=== PATIENT | male | born 1955 | race Caucasian/White ===

== ENCOUNTER 2016-05-14 08:10 | Outpatient (CLI) | payer BC, OTHER | END 2016-05-14 23:59 | DX: I10 Essential (primary) hypertension (principal); E78.5 Hyperlipidemia, unspecified; R73.01 Impaired fasting glucose ==

== ENCOUNTER 2016-06-30 12:34 | Day surgery (SDC) | payer BC, OTHER ==
[2016-06-30] MEDS ORDERED: LACTATED RINGERS 1,000 ML IV ONE (12:49)
[2016-06-30] MEDS ORDERED: fentaNYL 100 MCG/2 ML VIAL IVP ONE (14:57)
[2016-06-30] MEDS ORDERED: MIDAZOLAM 2 MG/2 ML VIAL IVP ONE (14:57)
== END 2016-06-30 12:35 | disposition home or self-care (01) ==
PROC: 0DJD8ZZ Inspection of Lower Intestinal Tract, Via Natural or Artificial Opening Endoscopic (ICD-10-PCS; principal; 2016-06-30 14:15)
DX: Z12.11 Encounter for screening for malignant neoplasm of colon (principal); K64.8 Other hemorrhoids; I10 Essential (primary) hypertension; E78.00 Pure hypercholesterolemia, unspecified; G47.30 Sleep apnea, unspecified; Z79.82 Long term (current) use of aspirin; Z80.1 Family history of malignant neoplasm of trachea, bronchus and lung; Z87.891 Personal history of nicotine dependence
CPT/HCPCS: 45378; J7120

== ENCOUNTER 2016-10-08 11:40 | Outpatient (CLI) | payer BC, OTHER | END 2016-10-08 11:41 | LOC: LAB.WCP 11:40 | PROVIDERS: ATTEND Physician Assistant Medical | DX: H60.90 Unspecified otitis externa, unspecified ear (principal) | CPT/HCPCS: 87070 ==

== ENCOUNTER 2017-05-25 08:20 | Outpatient (CLI) | payer BC, OTHER ==
[2017-05-25 12:27] LABS: ALBUMIN 4.4 g/dL (3.2-5.5); ALBUMIN/GLOBULIN RATIO 1.5 (1.0-2.2); ALKALINE PHOSPHATASE 61 IU/L (42-121); ALT ALANINE AMINOTRANSFERASE 28 IU/L (10-60); AST ASPARTATE AMINOTRANSFERASE 23 IU/L (10-42); BILIRUBIN,TOTAL 0.8 mg/dL (0.2-1.0); BUN - BLOOD UREA NITROGEN 19 mg/dL (6-20); CARBON DIOXIDE - CO2 24 mmol/L (21-32); CHLORIDE 104 mmol/L (101-111); CHOL/HDL RATIO 3.3 (<5.0); CHOLESTEROL 163 mg/dL; CREATININE 0.7 mg/dL (0.6-1.2); GFR - MDRD 114 (>89); GLUCOSE 121 mg/dL (70-100); HDL CHOLESTEROL 49 mg/dL; LDL CHOLESTEROL,CALCULATED 89 mg/dL; LDL/HDL RATIO 1.8 (<3.6); SODIUM 136 mmol/L (135-145); TOTAL PROTEIN 7.3 g/dL (6.7-8.2); VLDL CHOLESTEROL 25 mg/dL
[2017-05-25 12:39] LABS: HB2 TOTAL 15.1 g/dL; HEMOGLOBIN A1C 0.58 g/dL; HEMOGLOBIN A1C % 5.7 % (4.6-6.2)
[2017-05-25 12:52] LABS: BASOPHILS % (AUTO) 0.5 %; EOSINOPHILS # (AUTO) 0.1 10^3/uL (0.0-0.7); EOSINOPHILS % (AUTO) 1.3 %; HGB - HEMOGLOBIN 14.5 g/dL (14.0-18.0); LYMPHOCYTES # (AUTO) 1.9 10^3/uL (1.5-3.5); LYMPHOCYTES % (AUTO) 24.4 %; MEAN CORPUSCULAR HEMOGLOBIN 30.9 pg (27.0-31.0); MEAN CORPUSCULAR HGB CONC 34.3 g/dL (32.0-36.0); MEAN CORPUSCULAR VOLUME 90.1 fL (80.0-94.0); MEAN PLATELET VOLUME 8.7 fL (7.4-11.4); MONOCYTES # (AUTO) 0.5 10^3/uL (0.0-1.0); NEUTROPHILS # (AUTO) 5.1 10^3/uL (1.5-6.6); NEUTROPHILS % (AUTO) 66.8 %; PLT - PLATELET COUNT 229 10^3/uL (130-450); RED BLOOD COUNT 4.68 10^6/uL (4.70-6.10); RED CELL DISTRIBUTION WIDTH 13.2 % (12.0-15.0); WHITE BLOOD COUNT 7.6 x10^3/uL (4.8-10.8)
[2017-05-25 13:22] LABS: RBC MORPHOLOGY (MULTIPLE) 2+ ANISOCYTOSIS (NORMAL)
== END 2017-05-25 08:21 | disposition home or self-care (01) ==
LOC: LAB.WCP 08:20
PROVIDERS: ATTEND Physician Assistant Medical
DX: Z00.00 Encounter for general adult medical examination without abnormal findings (principal); R73.01 Impaired fasting glucose; N40.1 Benign prostatic hyperplasia with lower urinary tract symptoms
CPT/HCPCS: 36415; 80053; 80061; 83036; 83721; 84153; 84443; 85025

== ENCOUNTER 2017-10-06 07:40 | Outpatient (CLI) | payer BC, OTHER ==
[2017-10-06 13:29] LABS: CALCIUM 9.4 mg/dL (8.5-10.3)
[2017-10-06 16:36] LABS: HB2 TOTAL 15.9 g/dL; HEMOGLOBIN A1C 0.64 g/dL; HEMOGLOBIN A1C % 5.8 % (4.6-6.2)
== END 2017-10-06 07:41 | disposition home or self-care (01) ==
LOC: LAB.WCP 07:40
PROVIDERS: ATTEND Physician Assistant Medical
DX: R73.9 Hyperglycemia, unspecified (principal)
CPT/HCPCS: 36415; 80048; 83036

== ENCOUNTER 2018-01-26 09:37 | Outpatient (CLI) | payer BC, OTHER ==
[2018-01-26 12:56] LABS: CREATININE 0.8 mg/dL (0.6-1.2)
[2018-01-26 13:00] LABS: HB2 TOTAL 16.1 g/dL; HEMOGLOBIN A1C 0.62 g/dL; HEMOGLOBIN A1C % 5.7 % (4.6-6.2)
== END 2018-01-26 09:38 | disposition home or self-care (01) ==
LOC: LAB.WCP 09:37
PROVIDERS: ATTEND Physician Assistant Medical
DX: R73.9 Hyperglycemia, unspecified (principal)
CPT/HCPCS: 36415; 80048; 83036

== ENCOUNTER 2018-03-06 13:09 | Emergency (ER) | payer BC, OTHER ==
[2018-03-06 13:14] VITALS: BP 178/97
--- NOTE | 2018-03-06 13:29 | ED Physician Documentation ---
PD HPI UPPER EXT INJURY - Stated complaint Stated Complaint: LT THUMB LAC - Chief complaint Chief Complaint: Laceration - History obtained from History obtained from: Patient - History of Present Illness Location: Left (This is a left-handed gentleman who is up-to-date on tetanus who cut the dorsum of his left thumb at home on a broken mirror just prior to arrival.) Review of Systems Constitutional: denies: Fever, Chills Cardiac: denies: Chest pain / pressure, Palpitations Respiratory: denies: Dyspnea, Cough PD PAST MEDICAL HISTORY - Past Medical History Cardiovascular: Hypertension, High cholesterol Respiratory: Sleep apnea, CPAP use Endocrine/Autoimmune: None GI: Hiatal hernia, Other : None HEENT: None Psych: None Musculoskeletal: None Derm: Herpes zoster - Past Surgical History Past Surgical History: Yes General: Hiatal hernia repair, Colonoscopy HEENT: Tonsil/Adenoidectomy - Present Medications Home Medications: Ambulatory Orders Medication Instructions Recorded Confirmed Doxazosin [Cardura] 4 mg PO DAILY 11/05/12 06/30/16 Lisinopril [Zestril] 10 mg PO DAILY 11/05/12 06/30/16 Simvastatin [Zocor] 40 mg PO QPM 11/05/12 06/30/16 Aspirin [Aspir 81] 81 mg PO DAILY 05/10/14 06/30/16 - Allergies Allergies/Adverse Reactions: Allergies Allergy/AdvReac Type Severity Reaction Status Date / Time No Known Drug Allergies Allergy Verified 03/06/18 13:14 - Social History Does the pt smoke?: No Smoking Status: Never smoker Does the pt drink ETOH?: Yes Does the pt have substance abuse?: No - Immunizations Immunizations: TDAP current <10years PD ED PE NORMAL - Vitals Vital signs reviewed: Yes - General General: Alert and oriented X 3, No acute distress - Extremities Extremities: Other (On the dorsum of the left thumb at the level of the interphalangeal joint there is an oblique curved but very shallow laceration without trouble with extensor tendon function or neurovascular compromise at the tip.) - Neuro Neuro: Alert and oriented X 3, Normal speech Results - Vitals Vitals: Vital Signs - 24 hr 03/06/18 13:11 Temperature 36.4 C L Heart Rate 79 Respiratory 20 Rate Blood Pressure 178/97 H O2 Saturation 96 Oxygen O2 Source Room air Procedures - Laceration (location) L thumb Length in cm: 2 Wound type: Curved, Superficial Wound Preparation: Irrigated copiously NS Skin layer closure: Steri strips Complexity: Simple - Splint (location) L thumb Splint applied by: Physician Type of splint: Metal foam finger splint Other: Patient tolerated well, No complications, Neurovascular intact PD MEDICAL DECISION MAKING - ED course ED course: It was really too shallow to suture, it was Steri-Stripped and he was placed in a splint is he is doing some renovating around his house. Departure - Departure Disposition: 01 Home, Self Care Clinical Impression: Laceration Condition: Good Record reviewed to determine appropriate education?: Yes Instructions: ED Laceration Small Superf No Sutr Comments: Your blood pressure was elevated today on check into the emergency department. This does not mean that you have hypertension, it is a common phenomenon to come to the emergency department and have elevated blood pressure. I recommend that you see your primary care physician within the week to have it rechecked when you are feeling better.
== END 2018-03-06 14:04 | disposition home or self-care (01) ==
LOC: ED 13:09
DX: S61.012A Laceration without foreign body of left thumb without damage to nail, initial encounter (principal); W25.XXXA Contact with sharp glass, initial encounter; Y92.009 Unspecified place in unspecified non-institutional (private) residence as the place of occurrence of the external cause; I10 Essential (primary) hypertension; E78.00 Pure hypercholesterolemia, unspecified
CPT/HCPCS: 29130; 99282; 99283

== ENCOUNTER 2018-03-17 05:19 | Emergency (ER) | payer BC, OTHER ==
--- NOTE | 2018-03-17 05:36 | ED Physician Documentation ---
PD HPI ABD PAIN - Stated complaint Stated Complaint: RT FLANK PAIN - Chief complaint Chief Complaint: Abd Pain - History obtained from History obtained from: Patient - History of Present Illness Timing - onset: Enter time (03:00), Today Timing - details: Waxing and waning Pain level max: 8 Pain level now: 6 Location: Other (right flank) Radiation: Lower back Improved by: Other (nothing) Worsened by: Other (no exacerbating factors) Associated symptoms: Nausea. No: Fever, Vomiting Similar symptoms before: Has not had sx before Recently seen: Not recently seen - Additional information Additional information: c/o right flank pain since 3 AM, waxing and waning. took ibuprofen without relief. Review of Systems Constitutional: reports: Sweats. denies: Fever, Chills Cardiac: reports: Reviewed and negative Respiratory: reports: Reviewed and negative GI: reports: Abdominal Pain (right flank), Nausea. denies: Vomiting : denies: Dysuria, Frequency Musculoskeletal: reports: Back pain PD PAST MEDICAL HISTORY - Past Medical History Past Medical History: Yes Cardiovascular: Hypertension, High cholesterol Respiratory: Sleep apnea, CPAP use Endocrine/Autoimmune: None GI: Hiatal hernia, Other : None HEENT: None Psych: None Musculoskeletal: None Derm: Herpes zoster - Past Surgical History Past Surgical History: Yes General: Hiatal hernia repair, Colonoscopy HEENT: Tonsil/Adenoidectomy Derm: Skin cancer surgery - Present Medications Home Medications: Ambulatory Orders Medication Instructions Recorded Confirmed Doxazosin [Cardura] 4 mg PO DAILY 11/05/12 03/17/18 Lisinopril [Zestril] 10 mg PO DAILY 11/05/12 03/17/18 Simvastatin [Zocor] 40 mg PO QPM 11/05/12 03/17/18 Aspirin [Aspir 81] 81 mg PO DAILY 05/10/14 03/17/18 Naproxen 500 mg PO BID PRN #60 tablet 03/17/18 Ondansetron HCl [Zofran] 4 mg PO Q6HR PRN #30 tablet 03/17/18 Oxycodone HCl/Acetaminophen 1 each PO Q6H PRN #20 tablet 03/17/18 [Percocet 5-325 mg Tablet] - Allergies Allergies/Adverse Reactions: Allergies Allergy/AdvReac Type Severity Reaction Status Date / Time No Known Drug Allergies Allergy Verified 03/17/18 05:27 - Social History Does the pt smoke?: No Smoking Status: Never smoker Does the pt drink ETOH?: Yes Does the pt have substance abuse?: No - Immunizations Immunizations are current?: Yes Immunizations: TDAP current <10years - POLST Patient has POLST: No PD ED PE NORMAL - Vitals Vital signs reviewed: Yes - General General: Alert and oriented X 3, Well developed/nourished, Other (appears to be in moderate/severe painful distress) - Cardiac Cardiac: RRR, No murmur - Respiratory Respiratory: No respiratory distress, Clear bilaterally - Abdomen Abdomen: Soft, Non tender - Back Back: No CVA TTP - Derm Derm: Normal color, Warm and dry, No rash Results - Vitals Vitals: Vital Signs - 24 hr 03/17/18 03/17/18 03/17/18 05:20 05:57 06:35 Temperature 36 C L Heart Rate 92 62 48 L Respiratory 18 16 13 Rate Blood Pressure 166/84 H 141/82 H 141/83 H O2 Saturation 98 95 95 03/17/18 03/17/18 03/17/18 06:42 07:05 08:17 Temperature 36.0 C L 36.0 C L Heart Rate 57 L 60 43 L Respiratory 14 15 12 Rate Blood Pressure 140/81 H 144/88 H 170/157 H O2 Saturation 95 97 97 03/17/18 03/17/18 03/17/18 08:35 08:57 10:04 Temperature Heart Rate 74 59 L 64 Respiratory 18 16 12 Rate Blood Pressure 143/69 H 143/69 H 131/80 H O2 Saturation 97 100 100 Oxygen O2 Source Room air - Labs Labs: Laboratory Tests 03/17/18 03/17/18 03/17/18 05:34 05:34 09:43 WBC 7.1 RBC 4.84 Hgb 14.9 Hct 43.7 MCV 90.5 MCH 30.9 MCHC 34.1 RDW 13.7 Plt Count 242 MPV 8.2 Neut # (Auto) 4.7 Lymph # (Auto) 1.7 [place] # (Auto) 0.5 Eos # (Auto) 0.1 Baso # (Auto) 0.0 Absolute Nucleated RBC 0.00 Nucleated RBC % 0.0 Sodium 137 Potassium 4.1 Chloride 104 Carbon Dioxide 24 Anion Gap 9.0 BUN 20 Creatinine 0.9 Estimated GFR (MDRD) 85 L Glucose 157 H Calcium 9.0 Total Bilirubin 1.0 AST 24 ALT 31 Alkaline Phosphatase 70 Total Protein 7.6 Albumin 4.3 Globulin 3.3 Albumin/Globulin Ratio 1.3 Lipase 52 H Urine Color YELLOW Urine Clarity TURBID Urine pH 5.0 Ur Specific [place] >=1.030 H Urine Protein NEGATIVE Urine Glucose (UA) NEGATIVE Urine Ketones TRACE Urine Occult Blood MODERATE H Urine Nitrite NEGATIVE Urine Bilirubin NEGATIVE Urine Urobilinogen 0.2 (NORMAL) Ur Leukocyte Esterase NEGATIVE Urine RBC 6-10 H Urine WBC 0-3 Ur Squamous Epith Cells FEW Squamous Amorphous Sediment Moderate Urine Bacteria Few Urine Mucus Few Strands Ur Microscopic Review INDICATED Urine Culture Comments NOT INDICATED - Rads (name of study) CT A/P Radiology: Prelim report reviewed, See rad report PD MEDICAL DECISION MAKING - ED course Complexity details: reviewed results, re-evaluated patient, considered differential, d/w patient ED course: pain was initially well controlled with dilaudid and toradol IV (zofran for nausea), but as discharge plans were being discussed, pain and nausea recurred and were again severe, requiring repeat doses of dilaudid, zofran, followed by phenergan. D/W Dr. Rodriguez (urology at [facility]), recommends low dose morphone (2-3 mg) if pain continues, further ED observation, and f/u with his office if improved to the point of discharge but recontact him if pain continues to be poorly controlled. Patient care turned over to Dr. Erickson at end of my shift pending disposition. Departure - Departure Disposition: 01 Home, Self Care Clinical Impression: Urolithiasis, Renal colic Condition: Good Instructions: ED Stone Renal W Colic Follow-Up: Deshawn Rodriguez MD [Physician No Access] - (Call to arrange for next available appointment) Prescriptions: Ondansetron HCl [Zofran] 4 mg PO Q6HR PRN #30 tablet PRN Reason: Nausea / Vomiting Naproxen 500 mg PO BID PRN #60 tablet PRN Reason: Pain Oxycodone HCl/Acetaminophen [Percocet 5-325 mg Tablet] 1 each PO Q6H PRN #20 tablet PRN Reason: pain Comments: Please return to the emergency department for any worsening or any concerns. Discharge Date/Time: 03/17/18 10:28
[2018-03-17] MEDS ORDERED: HYDROmorphone 1 MG/ML CARPUJECT IVP STA ×3 (05:43→07:58)
[2018-03-17] MEDS ORDERED: KETOROLAC 30 MG/ML VIAL IVP STA (05:43)
[2018-03-17 05:52] LABS: ALBUMIN 4.3 g/dL (3.2-5.5); ALBUMIN/GLOBULIN RATIO 1.3 (1.0-2.2); CREATININE 0.9 mg/dL (0.6-1.2); TOTAL PROTEIN 7.6 g/dL (6.7-8.2)
[2018-03-17] MEDS ORDERED: ONDANSETRON 4 MG/2 ML VIAL IVP STA ×2 (05:52→07:05)
[2018-03-17 05:55] LABS: BASOPHILS % (AUTO) 0.6 %; EOSINOPHILS # (AUTO) 0.1 10^3/uL (0.0-0.7); EOSINOPHILS % (AUTO) 0.9 %; HGB - HEMOGLOBIN 14.9 g/dL (14.0-18.0); LYMPHOCYTES # (AUTO) 1.7 10^3/uL (1.5-3.5); LYMPHOCYTES % (AUTO) 24.4 %; MEAN CORPUSCULAR HEMOGLOBIN 30.9 pg (27.0-31.0); MEAN CORPUSCULAR HGB CONC 34.1 g/dL (32.0-36.0); MEAN CORPUSCULAR VOLUME 90.5 fL (80.0-94.0); MEAN PLATELET VOLUME 8.2 fL (7.4-11.4); MONOCYTES # (AUTO) 0.5 10^3/uL (0.0-1.0); MONOCYTES % (AUTO) 7.6 %; NEUTROPHILS # (AUTO) 4.7 10^3/uL (1.5-6.6); NEUTROPHILS % (AUTO) 66.5 %; PLT - PLATELET COUNT 242 10^3/uL (130-450); RED BLOOD COUNT 4.84 10^6/uL (4.70-6.10); RED CELL DISTRIBUTION WIDTH 13.7 % (12.0-15.0); WHITE BLOOD COUNT 7.1 x10^3/uL (4.8-10.8)
[2018-03-17] MEDS ORDERED: ONDANSETRON 4 MG/2 ML VIAL ONE (05:57)
--- NOTE | 2018-03-17 06:43 | CT Report ---
Reason: right flank pain Procedure Date: 03/17/2018 Accession Number: [id number] / [id number] Procedure: CT - Abdomen/Pelvis W/O CPT Code: FULL RESULT: EXAM: CT ABDOMEN AND PELVIS (CT KUB) EXAM DATE: 03/17/2018 06:11 AM. CLINICAL HISTORY: Right flank pain. COMPARISONS: None. TECHNIQUE: Routine axial helical CT imaging was performed through the abdomen and pelvis without IV contrast. Reconstructions: Coronal and sagittal. In accordance with CT protocol optimization, one or more of the following dose reduction techniques were utilized for this exam: automated exposure control, adjustment of mA and/or KV based on patient size, or use of iterative reconstructive technique. FINDINGS: Lung Bases: No focal consolidation seen. Fundoplication is noted. Right Kidney/Ureter: No stones are seen in the kidney. Mildly obstructing 3 mm stone in the distal ureter, about 2 cm above the ureterovesical junction. Left Kidney/Ureter: Nonobstructing 2 mm stone in the kidney. No ureteral stone or obstructive uropathy identified. Other Solid Organs: Fatty liver. Spleen, pancreas, and adrenals show no focal abnormalities on this noncontrast examination. Gallbladder/Bile Ducts: Unremarkable. Peritoneal Cavity: Ventral hernia repair. No bowel obstruction seen. Moderate stool in the right hemicolon. No diverticulitis seen. No free air or free fluid. No lymphadenopathy. Pelvic Organs: No bladder stones or wall thickening. Noncontrast images of the visualized pelvic organs are unremarkable. Vasculature: Mild atherosclerosis. No aortic aneurysm. Other: None. IMPRESSION: 1. Mildly obstructing 3 mm stone in the distal right ureter about 2 cm above the ureterovesical junction. 2. Nonobstructing 2 mm stone in the left kidney. 3. Fatty liver. RADIA
[2018-03-17] MEDS ORDERED: PROMETHAZINE INJ 12.5 MG in SODIUM CHLORIDE 0.9% 50 ML IV STA (07:52)
[2018-03-17] MEDS ORDERED: TAMSULOSIN 0.4 MG CAPSULE PO STA (08:45)
[2018-03-17] MEDS ORDERED: oxyCODONE 5 MG TABLET PO STA (08:45)
[2018-03-17 09:51] LABS: BILIRUBIN,URINE NEGATIVE (NEGATIVE); GLUCOSE, URINE (UA) NEGATIVE (NEGATIVE); KETONES,URINE (UA) TRACE mg/dL (NEGATIVE); LEUKOCYTE ESTERASE, URINE NEGATIVE (NEGATIVE); NITRITE,URINE NEGATIVE (NEGATIVE); OCCULT BLOOD,URINE MODERATE (NEGATIVE); PROTEIN,URINE NEGATIVE (NEGATIVE); UROBILINOGEN,URINE 0.2 (NORMAL) E.U./dL (NORMAL)
[2018-03-17 09:52] LABS: CLARITY,URINE TURBID (CLEAR)
[2018-03-17 10:00] LABS: AMORPHOUS SEDIMENT,UR Moderate /LPF; BACTERIA,URINE Few /HPF (None Seen); MUCUS,URINE Few Strands; SQUAMOUS EPITHELIAL CELL,UR FEW Squamous (<= Few)
[2018-03-17 10:05] VITALS: BP 131/80
--- NOTE | 2018-03-17 10:11 | ED Physician Documentation ---
ED Addendum - Addendum Addendum: 03/17/18 10:14 The patient's case was turned over to me by the off going emergency physician Dr. Lowery. Please refer to his history and physical for a comprehensive review of the patient's presentation. In short this is a 62-year-old male who presented to the emergency department with renal colic and on workup had evidence of a mildly obstructing 3 mm stone in the right distal ureter. The patient required more pain management in the emergency department. There is no evidence of a coinciding infected stone or sepsis. On reevaluation the patient is resting comfortably and his pain appears to be under control and appropriate for discharge home. Dr. Lowery is already consulted urology and they have agreed to follow the patient up. The findings and plan were discussed with the patient and his who understand and agreed to the plan. I advised that they should return back to the emergency department if there are pain is under control or they have worsening symptoms or any concerns.
== END 2018-03-17 10:28 | disposition home or self-care (01) ==
LOC: ED 05:19
DX: N20.9 Urinary calculus, unspecified (principal); N20.1 Calculus of ureter; I10 Essential (primary) hypertension; E78.00 Pure hypercholesterolemia, unspecified; Z79.82 Long term (current) use of aspirin
CPT/HCPCS: 36415; 74176; 80053; 81001; 83690; 85025; 96365; 96375; 96376; 99284; 99285; A9270; J1170; J7040; 81003; 87086

== ENCOUNTER 2018-06-28 08:00 | Outpatient (CLI) | payer BC, OTHER ==
[2018-06-28 12:43] LABS: ALBUMIN 4.1 g/dL (3.2-5.5); ALBUMIN/GLOBULIN RATIO 1.4 (1.0-2.2); ALKALINE PHOSPHATASE 66 IU/L (42-121); ALT ALANINE AMINOTRANSFERASE 21 IU/L (10-60); AST ASPARTATE AMINOTRANSFERASE 22 IU/L (10-42); BILIRUBIN,TOTAL 0.9 mg/dL (0.2-1.0); BUN - BLOOD UREA NITROGEN 25 mg/dL (6-20); CALCIUM 8.9 mg/dL (8.5-10.3); CARBON DIOXIDE - CO2 24 mmol/L (21-32); CHLORIDE 103 mmol/L (101-111); CHOL/HDL RATIO 3.3 (<5.0); CHOLESTEROL 153 mg/dL; CREATININE 0.9 mg/dL (0.6-1.2); GFR - MDRD 85 (>89); GLUCOSE 119 mg/dL (70-100); HDL CHOLESTEROL 47 mg/dL; LDL CHOLESTEROL,CALCULATED 86 mg/dL; LDL/HDL RATIO 1.8 (<3.6); SODIUM 138 mmol/L (135-145); VLDL CHOLESTEROL 20 mg/dL
[2018-06-28 12:48] LABS: BASOPHILS # (AUTO) 0.1 10^3/uL (0.0-0.1); BASOPHILS % (AUTO) 0.8 %; EOSINOPHILS # (AUTO) 0.1 10^3/uL (0.0-0.7); EOSINOPHILS % (AUTO) 1.6 %; HGB - HEMOGLOBIN 13.9 g/dL (14.0-18.0); LYMPHOCYTES # (AUTO) 1.7 10^3/uL (1.5-3.5); LYMPHOCYTES % (AUTO) 24.4 %; MEAN CORPUSCULAR HEMOGLOBIN 30.4 pg (27.0-31.0); MEAN CORPUSCULAR HGB CONC 33.4 g/dL (32.0-36.0); MEAN CORPUSCULAR VOLUME 91.1 fL (80.0-94.0); MEAN PLATELET VOLUME 8.8 fL (7.4-11.4); MONOCYTES # (AUTO) 0.5 10^3/uL (0.0-1.0); MONOCYTES % (AUTO) 7.8 %; NEUTROPHILS # (AUTO) 4.6 10^3/uL (1.5-6.6); NEUTROPHILS % (AUTO) 65.4 %; PLT - PLATELET COUNT 244 10^3/uL (130-450); RED BLOOD COUNT 4.58 10^6/uL (4.70-6.10); RED CELL DISTRIBUTION WIDTH 13.7 % (12.0-15.0)
== END 2018-06-28 23:59 | disposition home or self-care (01) ==
LOC: LAB.WCP 08:00
PROVIDERS: ATTEND Physician Assistant Medical
DX: Z00.00 Encounter for general adult medical examination without abnormal findings (principal); E78.5 Hyperlipidemia, unspecified; N40.1 Benign prostatic hyperplasia with lower urinary tract symptoms
CPT/HCPCS: 36415; 80053; 80061; 83721; 84153; 84443; 85025

== ENCOUNTER 2018-11-09 09:19 | Outpatient (CLI) | payer BC, OTHER ==
[2018-11-09 12:51] LABS: CALCIUM 9.4 mg/dL (8.5-10.3); CREATININE 1.1 mg/dL (0.6-1.2)
[2018-11-09 13:00] LABS: HB2 TOTAL 15.2 g/dL; HEMOGLOBIN A1C 0.62 g/dL; HEMOGLOBIN A1C % 5.9 % (4.6-6.2)
== END 2018-11-09 23:59 | disposition home or self-care (01) ==
LOC: LAB.WCP 09:19
PROVIDERS: ATTEND Physician Assistant Medical
DX: R73.9 Hyperglycemia, unspecified (principal)
CPT/HCPCS: 36415; 80048; 83036

== ENCOUNTER 2019-08-19 08:00 | Outpatient (CLI) | payer MEDICARE, OTHER ==
[2019-08-19 11:31] LABS: BASOPHILS # (AUTO) 0.1 10^3/uL (0.0-0.1); BASOPHILS % (AUTO) 0.7 %; EOSINOPHILS # (AUTO) 0.1 10^3/uL (0.0-0.7); EOSINOPHILS % (AUTO) 1.6 %; HGB - HEMOGLOBIN 14.5 g/dL (14.0-18.0); LYMPHOCYTES # (AUTO) 1.7 10^3/uL (1.5-3.5); LYMPHOCYTES % (AUTO) 24.2 %; MEAN CORPUSCULAR HEMOGLOBIN 30.9 pg (27.0-31.0); MEAN CORPUSCULAR HGB CONC 33.1 g/dL (32.0-36.0); MEAN CORPUSCULAR VOLUME 93.4 fL (80.0-94.0); MEAN PLATELET VOLUME 10.6 fL (7.4-11.4); MONOCYTES # (AUTO) 0.7 10^3/uL (0.0-1.0); MONOCYTES % (AUTO) 9.3 %; NEUTROPHILS # (AUTO) 4.4 10^3/uL (1.5-6.6); NEUTROPHILS % (AUTO) 63.2 %; PLT - PLATELET COUNT 236 10^3/uL (130-450); RED BLOOD COUNT 4.69 10^6/uL (4.70-6.10); RED CELL DISTRIBUTION WIDTH 12.6 % (12.0-15.0)
[2019-08-19 11:47] LABS: ALBUMIN 4.2 g/dL (3.2-5.5); ALBUMIN/GLOBULIN RATIO 1.4 (1.0-2.2); ALKALINE PHOSPHATASE 64 IU/L (42-121); ALT ALANINE AMINOTRANSFERASE 26 IU/L (10-60); AST ASPARTATE AMINOTRANSFERASE 22 IU/L (10-42); BUN - BLOOD UREA NITROGEN 21 mg/dL (6-20); CALCIUM 9.1 mg/dL (8.5-10.3); CARBON DIOXIDE - CO2 25 mmol/L (21-32); CHLORIDE 105 mmol/L (101-111); CHOL/HDL RATIO 3.2 (<5.0); CHOLESTEROL 178 mg/dL; CREATININE 0.9 mg/dL (0.6-1.2); GLUCOSE 117 mg/dL (70-100); HDL CHOLESTEROL 55 mg/dL; LDL CHOLESTEROL,CALCULATED 103 mg/dL; LDL/HDL RATIO 1.9 (<3.6); SODIUM 137 mmol/L (135-145); TOTAL PROTEIN 7.3 g/dL (6.7-8.2); VLDL CHOLESTEROL 20 mg/dL
[2019-08-19 11:51] LABS: HB2 TOTAL 14.9 g/dL; HEMOGLOBIN A1C 0.64 g/dL; HEMOGLOBIN A1C % 6.1 % (4.6-6.2)
== END 2019-08-19 23:59 | disposition home or self-care (01) ==
LOC: LAB.WCP 08:00
PROVIDERS: ATTEND Physician Assistant Medical
DX: E78.5 Hyperlipidemia, unspecified (principal); R73.9 Hyperglycemia, unspecified; N40.1 Benign prostatic hyperplasia with lower urinary tract symptoms; N13.8 Other obstructive and reflux uropathy; I10 Essential (primary) hypertension
CPT/HCPCS: 36415; 80053; 80061; 83036; 85025; G0103; 83721; 84153

== ENCOUNTER 2019-09-12 12:46 | Outpatient (CLI) | payer MEDICARE, OTHER ==
--- NOTE | 2019-09-12 14:22 | XRAY Report ---
PROCEDURE: Foot 3 View BILAT INDICATIONS: PLANTAR FASCIITIS TECHNIQUE: 3 views of each foot were acquired. COMPARISON: None. FINDINGS: Bones: No fractures or dislocations. There are small plantar calcaneal enthesophytes bilaterally. A bipartite right medial sesamoid is noted. No suspicious bony lesions. Soft tissues: No tibiotalar joint effusion. Achilles tendon appears normal. IMPRESSION: 1. Small bilateral plantar calcaneal enthesophytes. 2. No acute bony abnormality. Reviewed by: Roberto Carlos Goodwin MD on 09/12/2019 2:21 PM PDT Approved by: Roberto Carlos Goodwin MD on 09/12/2019 2:21 PM PDT Station ID: [id number]
== END 2019-09-12 12:47 | disposition home or self-care (01) ==
LOC: DI.N 12:46
PROVIDERS: ATTEND Physician Assistant Medical
DX: M77.32 Calcaneal spur, left foot (principal); M77.31 Calcaneal spur, right foot

== ENCOUNTER 2020-02-28 08:00 | Outpatient (CLI) | payer MEDICARE, OTHER ==
[2020-02-28 13:08] LABS: BASOPHILS # (AUTO) 0.1 10^3/uL (0.0-0.1); BASOPHILS % (AUTO) 0.7 %; EOSINOPHILS # (AUTO) 0.2 10^3/uL (0.0-0.7); ESTIMATED AVERAGE GLUCOSE 108 mg/dL (70-100); HCT - HEMATOCRIT 46.4 % (42.0-52.0); HEMOGLOBIN A1c% 5.4 % (4.27-6.07); HGB - HEMOGLOBIN 14.9 g/dL (14.0-18.0); LYMPHOCYTES # (AUTO) 1.8 10^3/uL (1.5-3.5); LYMPHOCYTES % (AUTO) 20.5 %; MEAN CORPUSCULAR HEMOGLOBIN 30.2 pg (27.0-31.0); MEAN CORPUSCULAR HGB CONC 32.1 g/dL (32.0-36.0); MEAN CORPUSCULAR VOLUME 93.9 fL (80.0-94.0); MEAN PLATELET VOLUME 10.5 fL (7.4-11.4); MONOCYTES # (AUTO) 0.6 10^3/uL (0.0-1.0); MONOCYTES % (AUTO) 7.2 %; NEUTROPHILS # (AUTO) 5.8 10^3/uL (1.5-6.6); NEUTROPHILS % (AUTO) 68.4 %; PLT - PLATELET COUNT 245 10^3/uL (130-450); RED BLOOD COUNT 4.94 10^6/uL (4.70-6.10); RED CELL DISTRIBUTION WIDTH 12.8 % (12.0-15.0); WHITE BLOOD COUNT 8.5 x10^3/uL (4.8-10.8)
[2020-02-28 14:19] LABS: ALBUMIN/GLOBULIN RATIO 1.4 (1.0-2.2); ALKALINE PHOSPHATASE 61 IU/L (42-121); ALT ALANINE AMINOTRANSFERASE 19 IU/L (10-60); AST ASPARTATE AMINOTRANSFERASE 16 IU/L (10-42); BILIRUBIN,TOTAL 0.8 mg/dL (0.2-1.0); BUN - BLOOD UREA NITROGEN 21 mg/dL (6-20); CALCIUM 9.3 mg/dL (8.5-10.3); CARBON DIOXIDE - CO2 27 mmol/L (21-32); CHLORIDE 104 mmol/L (101-111); CHOL/HDL RATIO 3.4 (<5.0); CHOLESTEROL 198 mg/dL; CREATININE 0.9 mg/dL (0.6-1.2); GFR - MDRD 85 (>89); GLUCOSE 114 mg/dL (70-100); HDL CHOLESTEROL 59 mg/dL; LDL CHOLESTEROL,CALCULATED 109 mg/dL; LDL/HDL RATIO 1.8 (<3.6); SODIUM 141 mmol/L (135-145); TOTAL PROTEIN 6.8 g/dL (6.7-8.2); TRIGLYCERIDES 149 mg/dL; VLDL CHOLESTEROL 30 mg/dL
== END 2020-02-28 23:59 | disposition home or self-care (01) ==
LOC: LAB.WCP 08:00
PROVIDERS: ATTEND Physician Assistant Medical
DX: E78.5 Hyperlipidemia, unspecified (principal); R73.9 Hyperglycemia, unspecified; I10 Essential (primary) hypertension
CPT/HCPCS: 36415; 80053; 80061; 83036; 83721; 85025

== ENCOUNTER 2020-08-27 08:00 | Outpatient (CLI) | payer MEDICARE, OTHER ==
[2020-08-27 13:47] LABS: ALBUMIN 4.6 g/dL (3.2-5.5); ALBUMIN/GLOBULIN RATIO 1.7 (1.0-2.2); ALKALINE PHOSPHATASE 47 IU/L (42-121); ALT ALANINE AMINOTRANSFERASE 27 IU/L (10-60); AST ASPARTATE AMINOTRANSFERASE 18 IU/L (10-42); BILIRUBIN,TOTAL 0.9 mg/dL (0.2-1.0); BUN - BLOOD UREA NITROGEN 22 mg/dL (6-20); CALCIUM 9.3 mg/dL (8.5-10.3); CARBON DIOXIDE - CO2 26 mmol/L (21-32); CHLORIDE 100 mmol/L (101-111); CHOL/HDL RATIO 3.7 (<5.0); CHOLESTEROL 144 mg/dL; GFR - MDRD 75 (>89); GLUCOSE 112 mg/dL (70-100); HDL CHOLESTEROL 39 mg/dL; LDL CHOLESTEROL,CALCULATED 89 mg/dL; LDL/HDL RATIO 2.3 (<3.6); POTASSIUM 4.2 mmol/L (3.5-5.0); SODIUM 137 mmol/L (135-145); TOTAL PROTEIN 7.3 g/dL (6.7-8.2); TRIGLYCERIDES 80 mg/dL; VLDL CHOLESTEROL 16 mg/dL
== END 2020-08-27 23:59 | disposition home or self-care (01) ==
LOC: LAB.WCP 08:00
PROVIDERS: ATTEND Physician Assistant Medical
DX: E78.5 Hyperlipidemia, unspecified (principal)
CPT/HCPCS: 36415; 80053; 80061; 83721

== ENCOUNTER 2020-10-18 13:15 | Outpatient (CLI) | payer MEDICARE, OTHER ==
--- NOTE | 2020-10-18 14:24 | SLEEP CARE CONSULTATION ---
Information from patient questionnaire entered by Faith Hastings. I have reviewed and concur with the information entered by Faith Hastings. This document represents the service I personally performed and the decisions made by , Nicole Youssef ARNP. History of Present Illness Service Date and Time: 10/18/2020 1315 Previous diagnosis: Very Severe, Obstructive Sleep Apnea-Hypopnea Syndrome AHI: 70.0 (in 2008) Reason for follow up: annual (last seen 10/2019) Equipment type: CPAP Equipment obtained from: [employer] (getting supplies as needed) Mask style: Full face Mask brand: Respironics (Dreamwear) Backup mask available: Yes (old mask) Last cushion change: 2 weeks ago Prior sleep studies: Yes Year and Where: 2008 - [facility] HPI additional information: VALENTE HO was diagnosed to have very severe, AHI 70.0, obstructive sleep apnea-hypopnea syndrome and returned today for CPAP therapy annual follow-up. CPAP Compliance Data - Data Reviewed with Patient Average duration of nightly device use: 8 hr 16 min Compliance rate %: 100 (180 days) Current pressure setting (cmH2O): 11 Humidity settin Average residual AHI: 0.6 Subjective Patient concerns: reports: dry mouth, nose, throat. denies: aerophagia, mask discomfort, air blowing in eyes, mask leak noise, condensation in mask/hose, nasal congestion, epistaxis, other Observed to snore while using device: No Current pressure setting perceived as: comfortable On therapy, patient: reports: sleeping better, awakening more refreshed, being more awake and alert during the day, more rested overall. denies: drowsiness while driving Initial [place] Sleepiness Scale score: 13 (in 2008) Current [place] Sleepiness Scale score: 3 Allergies and Home Medications Home medication list reviewed: Yes (no changes) Review of Systems Review of systems same as previous: Yes (no changes) Physical Exam O2 Saturation: 98 Height: 5 ft 10 in Weight: 215 lb 12.8 oz Weight change since last visit: 27 lb loss Body Mass Index: 30.9 BMI Classification: Obese Impression and Plan 1. Obstructive Sleep Apnea-Hypopnea Syndrome, very severe, with excellent treatment compliance and excellent apnea control. On CPAP therapy, the patient has better sleep quality and is more rested overall. He switched to a full face Dreamwear mask. He occasionally have dry mouth when he sleep with his mouth open. Oral dryness can be reduced by adjusting humidity setting higher or heated hose lower or by adjusting both settings. Verbal instructions given on how to change humidity and heated hose settings with rationale explaining why to change. Patient advised that chronic oral dryness can affect dental health. Patient has lost weight. Currently patients BMI is 30.9. Obesity increases the risk of apnea, CPAP pressure requirements and overall health risks especially cardiovascular and diabetes. Thus patient is advised to continue to lose weight. The patient's CPAP pressure range should accommodate some weight loss. Symptoms to report for additional pressure adjustment discussed. Patient's apnea severity and rationale for treatment to reduce apnea, improve sleep quality and reduce cardiovascular and cerebrovascular events was reviewed. I also reviewed the benefit of consistent device use of CPAP for hypertension. * Continue CPAP pressure at 11 cmH2O * Notify me if snoring with mask or feeling that the pressure is too much or too little * Continue to try to lose weight * Call this office if any problems using CPAP * Return for follow up in 1 year, or sooner if concerns arise Counseling Topics: Spare mask, Weight loss health impact Visit Type: In Office Time Spent with Patient (minutes): 20 Provider Statement: I spent 100% of the Face to Face Visit with the patient with greater than 50% spent counseling the patient and coordination of care.
== END 2020-10-18 13:16 | disposition home or self-care (01) ==
LOC: SC 13:15
PROVIDERS: ATTEND Nurse Practitioner Family
DX: G47.33 Obstructive sleep apnea (adult) (pediatric) (principal); E66.9 Obesity, unspecified; Z68.30 Body mass index [BMI] 30.0-30.9, adult
CPT/HCPCS: 99213; G0463; 99212

== ENCOUNTER 2021-03-21 08:20 | Outpatient (CLI) | payer MEDICARE, OTHER ==
[2021-03-21 12:44] LABS: ALBUMIN 4.3 g/dL (3.2-5.5); ALBUMIN/GLOBULIN RATIO 1.3 (1.0-2.2); ALKALINE PHOSPHATASE 59 IU/L (42-121); ALT ALANINE AMINOTRANSFERASE 23 IU/L (10-60); AST ASPARTATE AMINOTRANSFERASE 19 IU/L (10-42); BILIRUBIN,TOTAL 1.1 mg/dL (0.2-1.0); BUN - BLOOD UREA NITROGEN 23 mg/dL (6-20); CALCIUM 9.5 mg/dL (8.5-10.3); CARBON DIOXIDE - CO2 25 mmol/L (21-32); CHLORIDE 99 mmol/L (101-111); CHOL/HDL RATIO 3.6 (<5.0); CHOLESTEROL 206 mg/dL; CREATININE 0.9 mg/dL (0.6-1.2); GFR - MDRD 84 (>89); GLUCOSE 107 mg/dL (70-100); HDL CHOLESTEROL 57 mg/dL; LDL CHOLESTEROL,CALCULATED 110 mg/dL; LDL/HDL RATIO 1.9 (<3.6); POTASSIUM 3.9 mmol/L (3.5-5.0); SODIUM 136 mmol/L (135-145); TOTAL PROTEIN 7.5 g/dL (6.7-8.2); TRIGLYCERIDES 195 mg/dL; VLDL CHOLESTEROL 39 mg/dL
== END 2021-03-21 23:59 | disposition home or self-care (01) ==
LOC: LAB.WCP 08:20
PROVIDERS: ATTEND Physician Assistant Medical
DX: N40.1 Benign prostatic hyperplasia with lower urinary tract symptoms (principal); N13.8 Other obstructive and reflux uropathy; E78.5 Hyperlipidemia, unspecified
CPT/HCPCS: 36415; 80053; 80061; 83721; 84153

== ENCOUNTER 2021-11-19 09:53 | Outpatient (CLI) | payer MEDICARE, OTHER ==
[2021-11-19 10:18] VITALS: BP 170/80
--- NOTE | 2021-11-19 10:18 | SLEEP CARE CONSULTATION ---
Information from patient questionnaire entered by Steve Zambrano. I have reviewed and concur with the information entered by Steve Zambrano. This document represents the service I personally performed and the decisions made by me, Nicole Youssef ARNP. History of Present Illness Service Date and Time: 11/19/2021 0953 Previous diagnosis: Very Severe, Obstructive Sleep Apnea-Hypopnea Syndrome AHI: 70.0 (in 2008) Reason for follow up: annual (LAST SEEN 10/20) Equipment type: CPAP (RESMED) Equipment obtained from: [facility] (getting supplies as needed) Mask style: Full face Mask brand: Respironics (Dreamwear) Backup mask available: Yes (old mask) Last cushion change: yesterday [facility] Yes [facility] HPI additional information: VALENTE HO was diagnosed to have very severe, AHI 70.0, obstructive sleep apnea-hypopnea syndrome and returned today for CPAP therapy annual follow-up. Sleep Study - Results Prior [facility]: Yes [facility] Compliance Data - Data Reviewed with Patient Average duration of nightly device use: 8 HOURS, 27 MINUTES Compliance rate %: 98 (05/22/21 TO 11/17/21; 176/180 days used) Current pressure setting (cmH2O): 11 Average residual AHI: 0.7 Average large leak: 2.4 L/min Compliance data discussion: He traveled to [place] and used his old machine during the trip for 4 days. Subjective Missed days of use due to: reports: travel Patient concerns: reports: condensation in mask/hose (had switched heated hose off/ changed back to Auto), other (indent on head from the headgear, no soreness or rash). denies: aerophagia, mask discomfort, air blowing in eyes, mask leak noise, nasal congestion, dry mouth, nose, throat, epistaxis Observed to snore while using device: No Current pressure setting perceived as: comfortable On therapy, patient: reports: sleeping better, awakening more refreshed, being more awake and alert during the day, more rested overall. denies: drowsiness while driving Initial [place] Sleepiness Scale score: 13 (in 2008) Current [place] Sleepiness Scale score: 3 (11/19/21) Allergies and Home Medications Drug allergies reviewed: Yes (NKDA) Home medication list reviewed: Yes (stopped baby aspirin) Allergy and home medication list: Allergies No Known Drug Allergies Allergy (Verified 03/17/18 05:27) Review of Systems Review of systems same as previous: Yes (no changes) Physical Exam Vital signs obtained and entered by: KHANG CALVILLO Blood Pressure: 170/80 (left arm ) Cuff size: regular Heart Rate: 67 O2 Saturation: 97 Height: 5 ft 10 in Weight: 242 lb Body Mass Index: 34.7 BMI Classification: Obese Impression and Plan 1. Obstructive Sleep Apnea-Hypopnea Syndrome, very severe, with good treatment compliance and excellent apnea control. On CPAP therapy, the patient has better sleep quality and is more rested overall. Patient has significant improvement of his sleep apnea and is satisfied with current CPAP therapy. Patient denies problems with oral dryness, nasal congestion, epistaxis, skin irritation or aerophagia. Patient notes he gets concerns that his current DME company. I will update his prescription for supplies today. Patient's apnea severity and rationale for treatment to reduce apnea, improve sleep quality and reduce cardiovascular and cerebrovascular events was reviewed. I also reviewed the benefit of consistent device use of CPAP for hypertension. 2. Obesity, unspecified. Currently patients BMI is 34.7. Obesity increases the risk of apnea, CPAP pressure requirements and overall health risks especially cardiovascular and diabetes. Thus patient is advised to lose weight. Weight loss can be done with reducing portion size, reducing refined foods and balancing content with vegetables, fruit and whole grain foods. In addition, patient encouraged to get regular exercise. * Continue CPAP pressure at 11 cmH2O * Update supplies * Notify me if snoring with mask or feeling that the pressure is too much or too little * Attempt to lose weight * Call this office if any problems using CPAP * Return for follow up in 1 year, or sooner if concerns arise Counseling Topics: Spare mask, Weight loss health impact Visit Type: In Office Time Spent with Patient (minutes): 20 Provider Statement: I spent 100% of the Face to Face Visit with the patient with greater than 50% spent counseling the patient and coordination of care.
== END 2021-11-19 09:54 | disposition home or self-care (01) ==
LOC: SC 09:53
PROVIDERS: ATTEND Nurse Practitioner Family
DX: G47.33 Obstructive sleep apnea (adult) (pediatric) (principal); E66.9 Obesity, unspecified; Z68.34 Body mass index [BMI] 34.0-34.9, adult
CPT/HCPCS: 99213; G0463; 99212

== ENCOUNTER 2022-01-02 07:18 | Day surgery (SDC) | payer MEDICARE, OTHER ==
[~2022-01-02 07:18] MED LIST: CYCLOPENTOLATE 1% OPHTH DROPS 2 ML ONE; KETOROLAC 0.45% OPHTH DROPS ONE; PHENYLEPHRINE 2.5% OPHTH 2 ML DROPS ONE; PROPARACAINE 0.5% OPHTH DROPS 15 ML ONE
[2022-01-02] MEDS ORDERED: LACTATED RINGERS 1,000 ML IV ONE ×2 (07:30→09:24)
--- NOTE | 2022-01-02 08:22 | ANESTHESIA ---
Pre-Anesthesia VS, & Labs - Diagnosis L cataract - Procedure L PhacoIOL Height: 5 ft 10 in Weight (kg): 108.3 kg Body Mass Index: 34.2 BMI Classification: Obese - NPO >8 hours Home Medications and Allergies Doxazosin [Cardura] 4 mg PO DAILY 11/05/12 Lisinopril [Zestril] 10 mg PO DAILY 11/05/12 Simvastatin [Zocor] 40 mg PO QPM 11/05/12 Allergies/Adverse Reactions: Allergies Allergy/AdvReac Type Severity Reaction Status Date / Time No Known Drug Allergies Allergy Verified 01/01/22 14:39 Anes History & Medical History - Anesthetic History Anesthesia Complications: reports: No previous complications Family history of Anesthesia Complications: Denies Family history of Malignant Hyperthermia: Denies - Medical History Cardiovascular: reports: Hypertension, High cholesterol Pulmonary: reports: Sleep apnea, CPAP use Gastrointestinal: reports: Hiatal hernia, Other Urinary: reports: None Musculoskeletal: reports: None Endocrine/Autoimmune: reports: None Skin: reports: Herpes zoster Smoking Status: Never smoker - Surgical History General: reports: Hiatal hernia repair, Colonoscopy Eyes Ears Nose Throat (EENT): reports: Tonsil/Adenoidectomy Dermatologic: reports: Skin cancer surgery Exam General: Alert, Oriented x3, Cooperative Dental: WNL Mouth Openin Fingerbreadth Neck Mobility: Normal Mallampati classification: I Thyromental Distance: 4-6 cm Respiratory: Lungs clear Cardiovascular: Regular rate Plan Anesthesia Type: MAC Consent for Procedure(s) Verified and Reviewed: Yes Code Status: Attempt Resuscitation ASA classification: 2-Mild systemic disease Is this case an emergency?: No
[2022-01-02] MEDS ORDERED: MIDAZOLAM 2 MG/2 ML VIAL ONE (08:43)
[2022-01-02] MEDS ORDERED: BSS/LIDOCAINE/EPINEPHRINE 1 ML VIAL ONE (08:51)
[2022-01-02] MEDS ORDERED: TRIAMCIN/MOXIFLOX OPHTHALMIC 0.6 ML VIAL IO ONE ×3 (08:51→09:27)
[2022-01-02] MEDS ORDERED: TIMOLOL 0.5% OPHTH DROPS ONE (08:51)
[2022-01-02] MEDS ORDERED: BRIMONIDINE 0.2% OPHTH DROPS 5 ML ONE (08:51)
[2022-01-02] MEDS ORDERED: EPINEPHrine 1 MG/ML AMP ONE (08:51)
[2022-01-02] MEDS ORDERED: VANCOMYCIN OPHTH (TOPICAL) 10 MG/ML SYRINGE ONE (08:51)
[2022-01-02] MEDS ORDERED: EPINEPHrine 1 MG/ML AMP IR ONE (09:26)
[2022-01-02] MEDS ORDERED: BRIMONIDINE 0.2% OPHTH DROPS 5 ML OPTH ONE (09:26)
[2022-01-02] MEDS ORDERED: TIMOLOL 0.5% OPHTH DROPS OPTH ONE (09:26)
[2022-01-02] MEDS ORDERED: VANCOMYCIN OPHTH (TOPICAL) 10 MG/ML SYRINGE TOP ONE (09:27)
[2022-01-02] MEDS ORDERED: BSS/LIDOCAINE/EPINEPHRINE 1 ML SYRINGE IO ONE (09:27)
[2022-01-02] MEDS ORDERED: PROPARACAINE 0.5% OPHTH DROPS 15 ML LEFTEYE ONE (09:27)
--- NOTE | 2022-01-02 09:33 | OPERATIVE REPORT ---
Operative Report - Other Other Information/Narrative: Date of Surgery: 01/02/22 Preop Dx: Visually significant cataract left eye. This was the first cataract surgery. Postop Dx: Same Procedure: Phacoemulsification with posterior chamber intraocular lens implant left eye Surgeon: Dr. Norberto Parikh Anesthesia: Monitored anesthesia care Complications: None Operative Indications: This is a 66-year-old M with progressive vision loss in the left eye due to 3-4+ nuclear sclerotic cataract. Best corrected visual acuity was 20/50 with glare to 20/150 vision in the left eye. Indications for surgery were: - Overall decrease in vision - Difficulty reading - Difficulty seeing words, closed captions, or game scores on TV - Difficulty seeing street signs - Difficulty driving at night because of headlights from other vehicles - Difficulty tracking a golf ball The patient was consented at length concerning the risks and benefits of cataract surgery after which the patient expressed a desire to proceed with surgery. Operative Procedure: The patient was taken into OR#3 and placed under monitored anesthesia care. A surgical time-out was conducted confirming correct patient, correct procedure, and correct surgical site. The patient was given topical anesthesia and then prepped and draped in the usual sterile fashion. The eye was entered at the 6 and 3 oclock positions. Intracameral Shugarcaine was injected into the anterior chamber followed by a dispersive viscoelastic. A continuous-tear curvilinear capsulorhexis was performed. The nucleus was hydrodissected and phacoemulsified. The cortex was evacuated using automated infusion and aspiration. A cohesive viscoelastic was injected into the capsular bag and a 21.5 diopter intraocular lens was inserted into the bag. Infusion and aspiration were used to evacuate the viscoelastic materials from the eye. The wounds were hydrated and the eye inflated to physiologic pressure using balanced salt solution. Approximately 0.25ml of a mixture of triamcinolone and moxifloxacin was injected trans-sclerally into the vitreous in the inferotemporal quadrant using a 30 gauge cannula. An additional 0.55ml of a mixture of triamcinolone and moxifloxacin was injected subconjunctivally in the superior quadrant for infection and inflammation prophylaxis. Wound integrity was checked with Weck-Morena sponges. The patient was taken from the operating room in good condition and given post-op instructions.
[2022-01-02 09:38] VITALS: BP 135/82
--- NOTE | 2022-01-02 12:41 | ANESTHESIA POST OP EVALUATION ---
Anesthesia Post Eval - Post Anesthesia Eval Vitals: Last Vital Signs Temp 36.3 C L 01/02/22 09:24 Pulse 72 01/02/22 09:37 Resp 16 01/02/22 09:37 BP 135/82 H 01/02/22 09:37 Pulse Ox 97 01/02/22 09:37 O2 Flow Rate CV Function Including HR & BP: Stable Pain Control: Satisfactory Nausea & Vomiting: Negative Mental Status: Baseline Respiratory Status: Airway Patent Hydration Status: Satisfactory Anesthesia Complications: None
== END 2022-01-02 07:19 | disposition home or self-care (01) ==
LOC: SDS 07:18
PROVIDERS: ATTEND Ophthalmology
DX: H25.12 Age-related nuclear cataract, left eye (principal); G47.33 Obstructive sleep apnea (adult) (pediatric); E66.9 Obesity, unspecified; Z68.34 Body mass index [BMI] 34.0-34.9, adult
CPT/HCPCS: 66984; A9270; J3490; J7120

== ENCOUNTER 2022-03-06 08:29 | Day surgery (SDC) | payer MEDICARE, OTHER ==
--- NOTE | 2022-03-06 07:16 | ANESTHESIA ---
Pre-Anesthesia VS, & Labs - Diagnosis R nuclear cataract - Procedure R cataract extraction wIOL Height: 5 ft 10 in - NPO >8 hours Home Medications and Allergies Doxazosin [Cardura] 4 mg PO DAILY 11/05/12 Lisinopril [Zestril] 10 mg PO DAILY 11/05/12 Simvastatin [Zocor] 40 mg PO QPM 11/05/12 Allergies/Adverse Reactions: Allergies Allergy/AdvReac Type Severity Reaction Status Date / Time No Known Drug Allergies Allergy Verified 01/01/22 14:39 Anes History & Medical History - Anesthetic History Anesthesia Complications: reports: No previous complications Family history of Anesthesia Complications: Denies Family history of Malignant Hyperthermia: Denies - Medical History Cardiovascular: reports: Hypertension, High cholesterol Pulmonary: reports: Sleep apnea, CPAP use Gastrointestinal: reports: Hiatal hernia, Other Urinary: reports: None Musculoskeletal: reports: None Endocrine/Autoimmune: reports: None Skin: reports: Herpes zoster Smoking Status: Never smoker - Surgical History General: reports: Hiatal hernia repair, Colonoscopy Eyes Ears Nose Throat (EENT): reports: Cataracts, Tonsil/Adenoidectomy Dermatologic: reports: Skin cancer surgery Exam General: Alert, Oriented x3 Dental: WNL Mouth Openin Fingerbreadth Neck Mobility: Normal Mallampati classification: II Thyromental Distance: 4-6 cm Respiratory: Lungs clear, Normal breath sounds, No respiratory distress Cardiovascular: Regular rate Neurological: Normal speech Mental/Cognitive Status: Alert/Oriented X3, Normal for patient Cognitive Status: Within normal limits Plan Anesthesia Type: MAC Consent for Procedure(s) Verified and Reviewed: Yes Code Status: Attempt Resuscitation ASA classification: 2-Mild systemic disease Is this case an emergency?: No
[2022-03-06] MEDS ORDERED: LACTATED RINGERS 1,000 ML IV ONE (09:02)
[2022-03-06] MEDS ORDERED: MIDAZOLAM 2 MG/2 ML VIAL ONE (09:09)
[2022-03-06] MEDS ORDERED: TIMOLOL 0.5% OPHTH DROPS ONE (09:10)
[2022-03-06] MEDS ORDERED: TRIAMCIN/MOXIFLOX OPHTHALMIC 0.6 ML VIAL IO ONE ×2 (09:10→09:36)
[2022-03-06] MEDS ORDERED: BRIMONIDINE 0.2% OPHTH DROPS 5 ML ONE (09:10)
[2022-03-06] MEDS ORDERED: EPINEPHrine 1 MG/ML AMP ONE (09:10)
[2022-03-06] MEDS ORDERED: VANCOMYCIN OPHTH (TOPICAL) 10 MG/ML SYRINGE ONE (09:11)
[2022-03-06] MEDS ORDERED: BSS/LIDOCAINE/EPINEPHRINE 1 ML VIAL ONE (09:11)
[2022-03-06] MEDS ORDERED: EPINEPHrine 1 MG/ML AMP IR ONE (09:36)
[2022-03-06] MEDS ORDERED: TIMOLOL 0.5% OPHTH DROPS OPTH ONE (09:36)
[2022-03-06] MEDS ORDERED: BRIMONIDINE 0.2% OPHTH DROPS 5 ML OPTH ONE (09:36)
[2022-03-06] MEDS ORDERED: BSS/LIDOCAINE/EPINEPHRINE 1 ML SYRINGE IO ONE (09:36)
[2022-03-06] MEDS ORDERED: PROPARACAINE 0.5% OPHTH DROPS 15 ML RIGHTEYE ONE (09:37)
[2022-03-06] MEDS ORDERED: VANCOMYCIN OPHTH (TOPICAL) 10 MG/ML SYRINGE TOP ONE (09:37)
[2022-03-06] MEDS ORDERED: ACETYLCHOLINE 20 MG/2 ML KIT IO ONE ×3 (09:48→09:51)
[2022-03-06] MEDS ORDERED: LACTATED RINGERS 900 ML IV ONE (10:05)
--- NOTE | 2022-03-06 10:30 | ANESTHESIA POST OP EVALUATION ---
Anesthesia Post Eval - Post Anesthesia Eval Vitals: Last Vital Signs Temp 36.5 C 03/06/22 10:05 Pulse 70 03/06/22 10:05 Resp 12 03/06/22 10:05 BP 127/74 03/06/22 10:05 Pulse Ox 99 03/06/22 10:05 O2 Flow Rate CV Function Including HR & BP: Stable Pain Control: Satisfactory Nausea & Vomiting: Negative Mental Status: Baseline Respiratory Status: Airway Patent Hydration Status: Satisfactory Anesthesia Complications: None
[2022-03-06 10:34] VITALS: BP 119/71
--- NOTE | 2022-03-06 10:58 | OPERATIVE REPORT ---
Operative Report - Other Other Information/Narrative: Date of Surgery: 03/06/22 Preop Dx: Visually significant cataract right eye. Cataract surgery was performed in the left eye on . Postop Dx: Same Procedure: Phacoemulsification with posterior chamber intraocular lens implant right eye Surgeon: Dr. Norberto Parikh Anesthesia: Monitored anesthesia care Complications: None Operative Indications: This is a 66-year-old M with progressive vision loss in the right eye due to 3-4+ nuclear sclerotic cataract. Best corrected visual acuity was 20/40 with glare to 20/100 vision in the right eye. Indications for surgery were: - Overall decrease in vision - Difficulty seeing words on a computer screen - Difficulty reading - Difficulty seeing words, closed captions, or game scores on TV - Difficulty seeing street signs - Decreased acuity with firearms The patient was consented at length concerning the risks and benefits of cataract surgery after which the patient expressed a desire to proceed with surgery. Operative Procedure: The patient was taken into OR#3 and placed under monitored anesthesia care. A surgical time-out was conducted confirming correct patient, correct procedure, and correct surgical site. The patient was given topical anesthesia and then prepped and draped in the usual sterile fashion. The eye was entered at the 6 and 3 oclock positions. Intracameral Shugarcaine was injected into the anterior chamber followed by a dispersive viscoelastic. A continuous-tear curvilinear capsulorhexis was attempted but for some reason it was difficult getting the rhexis to start. After several attempts I shifted focus 180 (nasally) degrees away and started the rhexis there, bringing it around counterclockwise to the original start point. Another flap was started at the nasal start point and brought around clockwise to complete the rhexis. The nucleus was hydrodissected and phacoemulsified but an anterior capsular tear occurred at the nasal rhexis start point. The cortex was evacuated using automated infusion and aspiration without elongating the capsule tear. A cohesive viscoelastic was injected into the capsular bag and a 21.5 diopter intraocular lens was inserted into the bag. Infusion and aspiration were used to evacuate the viscoelastic materials from the eye. The wounds were hydrated and the eye inflated to physiologic pressure using balanced salt solution. Approximately 0.25ml of a mixture of triamcinolone and moxifloxacin was injected trans-sclerally into the vitreous in the inferotemporal quadrant using a 30 gauge cannula. An additional 0.55ml of a mixture of triamcinolone, moxifloxacin was injected subconjunctivally in the superior quadrant for infection and inflammation prophylaxis. However, by this point the IOL had partially prolapsed out of the bag superiorly. Manipulating it through the phaco wound caused the iris to prolapse into the paracentsis. In attempting to remove iris from either wound, the IOL would prolapse, and manipulating the IOL would result in iris prolapse. Eventually a 10-0 nylon suture was placed across the phaco wound and miochol was injected into the anterior chamber followed by Healon Pro. With the pupil down and the chamber stable the IOL was able to be reposited into the bag. The viscoelastic was evacuated using continuous irrigation at the paracentesis while aspirating through the phaco wound with an empty syringe and cannula. Wound integrity was checked with Weck-Morena sponges. The patient was taken from the operating room in good condition and given post-op instructions. The patient was given a dose of Diamox SR po x1 in the PACU.
== END 2022-03-06 08:30 | disposition home or self-care (01) ==
LOC: SDS 08:29
PROVIDERS: ATTEND Ophthalmology
DX: H25.11 Age-related nuclear cataract, right eye (principal); G47.30 Sleep apnea, unspecified; Z98.42 Cataract extraction status, left eye
CPT/HCPCS: 66984; A9270; J3490; J7120

== ENCOUNTER 2022-10-22 07:29 | Outpatient (CLI) | payer MEDICARE, OTHER ==
[2022-10-22 12:34] LABS: BASOPHILS # (AUTO) 0.1 10^3/uL (0.0-0.1); BASOPHILS % (AUTO) 0.8 %; EOSINOPHILS # (AUTO) 0.1 10^3/uL (0.0-0.7); EOSINOPHILS % (AUTO) 1.6 %; HCT - HEMATOCRIT 43.1 % (42.0-52.0); HGB - HEMOGLOBIN 14.3 g/dL (14.0-18.0); LYMPHOCYTES # (AUTO) 1.7 10^3/uL (1.5-3.5); LYMPHOCYTES % (AUTO) 26.2 %; MEAN CORPUSCULAR HGB CONC 33.2 g/dL (32.0-36.0); MEAN CORPUSCULAR VOLUME 93.3 fL (80.0-94.0); MEAN PLATELET VOLUME 10.7 fL (7.4-11.4); MONOCYTES # (AUTO) 0.7 10^3/uL (0.0-1.0); MONOCYTES % (AUTO) 10.1 %; NEUTROPHILS # (AUTO) 3.9 10^3/uL (1.5-6.6); NEUTROPHILS % (AUTO) 60.5 %; PLT - PLATELET COUNT 266 10^3/uL (130-450); RED BLOOD COUNT 4.62 10^6/uL (4.70-6.10); RED CELL DISTRIBUTION WIDTH 12.7 % (12.0-15.0); WHITE BLOOD COUNT 6.4 x10^3/uL (4.8-10.8)
[2022-10-22 12:52] LABS: ALBUMIN 4.2 g/dL (3.2-5.5); ALBUMIN/GLOBULIN RATIO 1.8 (1.0-2.2); ALKALINE PHOSPHATASE 67 IU/L (42-121); ALT ALANINE AMINOTRANSFERASE 27 IU/L (10-60); AST ASPARTATE AMINOTRANSFERASE 19 IU/L (10-42); BILIRUBIN,TOTAL 0.6 mg/dL (0.2-1.0); BUN - BLOOD UREA NITROGEN 16 mg/dL (6-20); CALCIUM 9.7 mg/dL (8.5-10.3); CARBON DIOXIDE - CO2 27 mmol/L (21-32); CHLORIDE 105 mmol/L (101-111); CHOLESTEROL 157 mg/dL; GFR - MDRD 74 (>89); GLUCOSE 123 mg/dL (74-104); HDL CHOLESTEROL 52 mg/dL; LDL CHOLESTEROL,CALCULATED 81 mg/dL; LDL/HDL RATIO 1.6 (<3.6); SODIUM 139 mmol/L (135-145); TOTAL PROTEIN 6.6 g/dL (6.4-8.9); TRIGLYCERIDES 120 mg/dL (48-352); VLDL CHOLESTEROL 24 mg/dL
[2022-10-22 13:03] LABS: THYROID STIMULATING HORMONE 2.38 uIU/mL (0.34-5.60)
== END 2022-10-22 07:30 | disposition home or self-care (01) ==
LOC: LAB.N 07:29
PROVIDERS: ATTEND Physician Assistant Medical
DX: I10 Essential (primary) hypertension (principal); E78.5 Hyperlipidemia, unspecified; Z12.5 Encounter for screening for malignant neoplasm of prostate; Z79.899 Other long term (current) drug therapy
CPT/HCPCS: 36415; 80053; 80061; 84443; 85025; G0103; 83721; 84153

== ENCOUNTER 2022-11-07 08:11 | Outpatient (CLI) | payer MEDICARE, OTHER | END 2022-11-07 08:12 | disposition home or self-care (01) | LOC: LAB.N 08:11 | PROVIDERS: ATTEND Physician Assistant Medical | DX: M79.676 Pain in unspecified toe(s) (principal) | CPT/HCPCS: 36415; 84550 ==

== ENCOUNTER 2022-11-19 12:46 | Outpatient (CLI) | payer MEDICARE, OTHER ==
--- NOTE | 2022-11-19 13:11 | Sleep Patient Instructions ---
Sleep Center Visit Summary - Patient Visit Information Reason for Visit: Annual visit for PAP therapy - Patient Instructions Additional Instructions: You will continue with CPAP therapy with pressure set at 11 cmH2O. A supply prescription will be updated with your DME. We encourage you to continue to try to lose weight. Please follow up with the sleep care office in 1 year. - Clinic Information Contact: [facility] [address] [place] [address] [email or web address] T: [phone]
--- NOTE | 2022-11-19 13:14 | SLEEP CARE CONSULTATION ---
Information from patient questionnaire entered by Rodrigo Byrne. I have reviewed and concur with the information entered by Rodrigo Byrne. This document represents the service I personally performed and the decisions made by me, Nicole Youssef ARNP. History of Present Illness Service Date and Time: 11/19/2022 1246 Previous diagnosis: Very Severe, Obstructive Sleep Apnea-Hypopnea Syndrome AHI: 70.0 (in 2008) Reason for follow up: annual (LAST SEEN 10/2021) Equipment type: CPAP (RESMED Airsense 10, s/u 07/2019) Equipment obtained from: [employer] (getting supplies as needed) Mask style: Full face Backup mask available: Yes (other mask) Last cushion change: 1 month [facility] additional information: VALENTE HO was diagnosed to have very severe, AHI 70, obstructive sleep apnea-hypopnea syndrome and returned today for CPAP therapy annual follow-up. Sleep Study - Results Prior sleep studies: Yes Year and Where: 2008 - [facility] CPAP Compliance Data - Data Reviewed with Patient Average duration of nightly device use: 8 HRS 22 MIN Compliance rate %: 99 (05/21/22-11/16/22; 179/180 days used) Current pressure setting (cmH2O): 11 Average residual AHI: 0.9 Central apnea: 0.1 Obstructive apnea: 0.4 Hypopnea: 0.4 Average large leak: 6.2 L/min Subjective Patient concerns: denies: aerophagia, mask discomfort, air blowing in eyes, mask leak noise, condensation in mask/hose, nasal congestion, dry mouth, nose, throat, epistaxis Observed to snore while using device: No Current pressure setting perceived as: comfortable On therapy, patient: reports: sleeping better, awakening more refreshed, being more awake and alert during the day, more rested overall. denies: drowsiness while driving Initial Snowflake Sleepiness Scale score: 13 (in 2008) Current Snowflake Sleepiness Scale score: 3 (11/19/22) Allergies and Home Medications Known drug allergies: No Drug allergies reviewed: Yes Home medication list reviewed: Yes (no changes) Allergy and home medication list: Allergies No Known Drug Allergies Allergy (Verified 11/18/22 14:01) Review of Systems Review of systems same as previous: Yes (N/A) Physical Exam Vital signs obtained and entered by: RODRIGO Torres MA Blood Pressure: 122/64 (LEFT ARM) Cuff size: regular Heart Rate: 59 O2 Saturation: 98 Height: 5 ft 10 in Weight: 239 lb 9.6 oz Weight change since last visit: 3 lb down Body Mass Index: 34.3 BMI Classification: Obese Impression and Plan 1. Obstructive Sleep Apnea-Hypopnea Syndrome, very severe, with good treatment compliance and good apnea control. On CPAP therapy, the patient has better sleep quality and is more rested overall. Patient denies problems with oral dryness, nasal congestion, epistaxis, skin irritation or aerophagia. Patient has significant improvement of their sleep apnea and is satisfied with current CPAP therapy. Patient's apnea severity and rationale for treatment to reduce apnea, improve sleep quality and reduce cardiovascular and cerebrovascular events was reviewed. I also reviewed the benefit of consistent device use of CPAP for hypertension. 2. Obesity, unspecified. Currently patients BMI is 34.3. Obesity increases the risk of apnea, CPAP pressure requirements and overall health risks especially cardiovascular and diabetes. Thus patient is advised to continue to try to lose weight. * Continue CPAP pressure at 11 cmH2O * Update supplies * Notify me if snoring with mask or feeling that the pressure is too much or too little * Attempt to lose weight * Call this office if any problems using CPAP * Return for follow up in 1 year, or sooner if concerns arise Counseling Topics: Spare mask, Weight loss health impact Visit Type: In Office Time Spent with Patient (minutes): 16 Provider Statement: I spent 100% of the Face to Face Visit with the patient with greater than 50% spent counseling the patient and coordination of care.
[2022-11-19 14:11] VITALS: BP 122/64; O2SAT 98
== END 2022-11-19 12:47 | disposition home or self-care (01) ==
LOC: SC 12:46
PROVIDERS: ATTEND Nurse Practitioner Family
DX: G47.33 Obstructive sleep apnea (adult) (pediatric) (principal); E66.9 Obesity, unspecified; Z68.34 Body mass index [BMI] 34.0-34.9, adult
CPT/HCPCS: 99212; G0463; 36415; 80053; 80061; 83721; 84153; 84443; 85025

== ENCOUNTER 2023-11-24 11:03 | Outpatient (CLI) | payer MEDICARE, OTHER ==
--- NOTE | 2023-11-24 11:35 | Sleep Patient Instructions ---
Sleep Center Visit Summary - Patient Visit Information Reason for Visit: Annual follow-up - Patient Instructions Additional Instructions: You will continue with CPAP therapy with pressure set at 11 cmH2O. A supply prescription will be updated with your DME supplier. We encourage you to continue to try to lose weight. Please follow up with the sleep care office in 1 year. - Clinic Information Contact: [facility] [address] [place] [address] [email or web address] T: [phone]
--- NOTE | 2023-11-24 11:39 | SLEEP CARE CONSULTATION ---
Information from patient questionnaire entered by Blanca Lennon. I have reviewed and concur with the information entered by Blanca Lennon. This document represents the service I personally performed and the decisions made by , Nicole Youssef ARNP. History of Present Illness Service Date and Time: 11/24/2023 1103 Previous diagnosis: Very Severe, Obstructive Sleep Apnea-Hypopnea Syndrome AHI: 70 (in 2008) Reason for follow up: annual (Last seen 10/2022) Equipment type: CPAP (RESMED Airsense 10, s/u 07/2019) Equipment obtained from: [employer] (getting supplies as needed) Mask style: Full face Backup mask available: Yes Last cushion change: 2 days [facility] additional information: VALENTE HO was diagnosed to have very severe, AHI 70, obstructive sleep apnea-hypopnea syndrome and returned today for CPAP therapy annual follow-up. Sleep Study - Results Prior sleep studies: Yes Year and Where: 2008 - [facility] CPAP Compliance Data - Data Reviewed with Patient Average duration of nightly device use: 8 h 35 min Compliance rate %: 100 (180/180 days used) Current pressure setting (cmH2O): 11 Average residual AHI: 0.5 Central apnea: 0.1 Obstructive apnea: 0.2 Hypopnea: 0.2 Average large leak: 6.2 L/min Subjective Patient concerns: reports: other (straps leaving indent on sides of head). denies: aerophagia, mask discomfort, air blowing in eyes, mask leak noise, condensation in mask/hose, nasal congestion, dry mouth, nose, throat, epistaxis Observed to snore while using device: No Current pressure setting perceived as: comfortable On therapy, patient: reports: sleeping better, awakening more refreshed, being more awake and alert during the day, more rested overall. denies: drowsiness while driving Initial Russell Sleepiness Scale score: 13 (in 2008) Current Russell Sleepiness Scale score: 6 (11/24/23) Allergies and Home Medications Known drug allergies: No Drug allergies reviewed: Yes Home medication list reviewed: Yes (no changes) Allergy and home medication list: Allergies No Known Drug Allergies Allergy (Verified 11/24/23 11:27) Home Medications Doxazosin [Cardura] 4 mg PO DAILY 11/05/12 [History] Lisinopril [Zestril] 10 mg PO DAILY 11/05/12 [History] Simvastatin [Zocor] 40 mg PO QPM 11/05/12 [History] Review of Systems Review of systems same as previous: Yes (no changes) Physical Exam Vital signs obtained and entered by: Nicole Headley NP Blood Pressure: 141/73 Cuff size: long (left arm) Heart Rate: 86 O2 Saturation: 97 Height: 5 ft 10 in Weight: 233 lb Weight change since last visit: 6 lb loss Body Mass Index: 33.4 BMI Classification: Obese Impression and Plan 1. Obstructive Sleep Apnea-Hypopnea Syndrome, very severe, with good treatment compliance and good apnea control. On CPAP therapy, the patient has better sleep quality and is more rested overall. Patient does get some indentations on the side of his head from the straps on his mask. He states he likes this mask better than others he has tried. He has considered trying a different style but decided today to wait on that. I encouraged him to try using barriers on the straps to help reduce the indentations. He voiced understanding. Patient has significant improvement of their sleep apnea and is satisfied with current CPAP therapy. Patient denies problems with oral dryness, nasal congestion, epistaxis, skin irritation or aerophagia. Patient's apnea severity and rationale for treatment to reduce apnea, improve sleep quality and reduce cardiovascular and cerebrovascular events was reviewed. I also reviewed the benefit of consistent device use of CPAP for hypertension. 2. Obesity, unspecified. Currently patients BMI is 33.4. He has lost weight. Obesity increases the risk of apnea, CPAP pressure requirements and overall health risks especially cardiovascular and diabetes. Thus patient is advised to continue to try to lose weight. * Continue CPAP pressure at 11 cmH2O * Update supply prescription. * Notify me if snoring with mask or feeling that the pressure is too much or too little * Continue to try to lose weight * Call this office if any problems using CPAP * Return for follow up in 12 months, or sooner if concerns arise Counseling Topics: Spare mask, Weight loss health impact Prescriptions: Device supplies Follow up with Sleep Care in: 1 year Visit Type: In Office Time Spent with Patient (minutes): 20 Provider Statement: I spent 100% of the Face to Face Visit with the patient with greater than 50% spent counseling the patient and coordination of care.
[2023-11-24 11:49] VITALS: BP 141/73; O2SAT 97
== END 2023-11-24 11:04 | disposition home or self-care (01) ==
LOC: SC 11:03
PROVIDERS: ATTEND Nurse Practitioner Family
DX: G47.33 Obstructive sleep apnea (adult) (pediatric) (principal); E66.9 Obesity, unspecified; Z68.33 Body mass index [BMI] 33.0-33.9, adult
CPT/HCPCS: 99213; G0463; 99212